=== PATIENT | female | born 1990 | race Caucasian/White ===

== ENCOUNTER 2017-10-28 09:06 | Inpatient (IN) | payer OTHER ==
[~2017-10-28] VITALS: Ht 162.6 cm; Wt 92.0 kg
[2017-10-29] MEDS ORDERED: VITAFOL-OB+DHA1 EACH PO (06:42)
--- NOTE | 2017-10-30 08:33 | PR ---
[facility] [address] [facility] [place], [place] [address] Signed PP Progress Notes Datetime Report Generated by CPN: 10/30/2017 08:33 SUBJECTIVE: [id number] Pain: Within normal limits Nausea/Vomiting: Denies Vital Signs: [id number] Vital Signs: Reviewed; Within Normal Limits EXAM: [id number] Cardiovascular: Not Done Respiratory: Not Done Abdomen/Uterus: Abnormal Lochia: Normal Vulva/Perineum: Not Done Breasts: Not Done CVA Tenderness: Not Done Extremities: Normal Incision: Not Applicable Progress: Normal Exam Comments: Fundus firm, NT @ U. H/H 11.6/35.3, WBC 17.6, plat 243k IMPRESSION/PLAN/PROCEDURES: [id number] Impression: Normal progression Plan: Continue present management Progress Notes: Doing well. Will continue routine care. Signing Physician: Eileen Raya MD Copies: ~ *Electronically Signed* 10/30/17 0833 EILEEN RAYA MD PATIENT NAME: HEATHER GUERRERO PROGRESS NOTE DATE OF : 86 PHYSICIAN: EILEEN RAYA MD RPT #: [id number] REPORT IS CONFIDENTIAL AND NOT TO BE RELEASED WITHOUT AUTHORIZATION
--- NOTE | 2017-10-31 09:58 | PR ---
[facility] [address] [facility] [place] [address] Signed PP Progress Notes Datetime Report Generated by CPN: 10/31/2017 09:58 SUBJECTIVE: [id number] Pain: Within normal limits Nausea/Vomiting: Denies Vital Signs: [id number] Vital Signs: Reviewed; Within Normal Limits EXAM: [id number] Cardiovascular: Not Done Respiratory: Not Done Abdomen/Uterus: Abnormal Lochia: Normal Vulva/Perineum: Not Done Breasts: Not Done CVA Tenderness: Not Done Extremities: Normal Incision: Not Applicable Progress: Normal Exam Comments: Fundus firm, NT @ U. IMPRESSION/PLAN/PROCEDURES: [id number] Impression: Normal progression Plan: Discharge Procedures: None Progress Notes: Doing well. She is ready for D/C. Signing Physician: Eileen Raya MD Copies: ~ *Electronically Signed* 10/31/17 0958 EILEEN RAYA MD PATIENT NAME: HEATHER GUERRERO PROGRESS NOTE DATE OF : 86 PHYSICIAN: EILEEN RAYA MD RPT #: [id number] REPORT IS CONFIDENTIAL AND NOT TO BE RELEASED WITHOUT AUTHORIZATION
== END 2017-10-31 10:50 | disposition home or self-care (01) | DRG 775 ==
LOC: FBC 10-29 05:50
PROVIDERS: ADMIT Obstetrics & Gynecology
PROC: 10E0XZZ Delivery of Products of Conception, External Approach (ICD-10-PCS; principal; 2017-10-29)
PROC: 10907ZC Drainage of Amniotic Fluid, Therapeutic from Products of Conception, Via Natural or Artificial Opening (ICD-10-PCS; 2017-10-29)
PROC: 3E0P7VZ Introduction of Hormone into Female Reproductive, Via Natural or Artificial Opening (ICD-10-PCS; 2017-10-29)
PROC: 00HU33Z Insertion of Infusion Device into Spinal Canal, Percutaneous Approach (ICD-10-PCS; 2017-10-29)
PROC: 3E0R3BZ Introduction of Anesthetic Agent into Spinal Canal, Percutaneous Approach (ICD-10-PCS; 2017-10-29)
DX: O30.043 Twin pregnancy, dichorionic/diamniotic, third trimester (principal); O75.89 Other specified complications of labor and delivery; O32.2XX1 Maternal care for transverse and oblique lie, fetus 1; O32.2XX2 Maternal care for transverse and oblique lie, fetus 2; O69.1XX1 Labor and delivery complicated by cord around neck, with compression, fetus 1; Z88.5 Allergy status to narcotic agent; Z3A.38 38 weeks gestation of pregnancy; Z37.2 Twins, both liveborn
CPT/HCPCS: 36415; 82803; 85027; J2210; J2590; J2795; J3010; J7120

== ENCOUNTER 2018-05-25 09:54 | Emergency (ER) | payer OTHER ==
[~2018-05-25] VITALS: Ht 162.6 cm; Wt 91.6 kg
[~2018-05-25 09:54] MED LIST: VITAFOL-OB+DHA1 EACH PO
[2018-05-25] MEDS ORDERED: PROMETHAZINE HC25 M1 PO (12:34)
[2018-05-25] MEDS ORDERED: AMOXICILLIN500 MG PO (12:34)
== END 2018-05-25 12:43 | disposition home or self-care (01) ==
LOC: ED 09:54
DX: R10.11 Right upper quadrant pain (principal); J02.0 Streptococcal pharyngitis; Z88.5 Allergy status to narcotic agent
CPT/HCPCS: 80053; 81001; 83690; 84703; 85025; 87880; 96361; 96374; 99284-25; J2550; J7030

== ENCOUNTER → 2018-11-26 | Emergency (ER) | payer OTHER ==
[~2018-11-26] VITALS: Ht 162.6 cm; Wt 63.0 kg
[~2018-11-26] MED LIST changes: +AMOXICILLIN500 MG PO; +OMEPRAZOLE20 MG PO; +PROMETHAZINE HC25 M1 PO; +ZOFRAN8 MG PO
== END ==
LOC: ED 02:03
DX: R11.0 Nausea (principal); Z88.5 Allergy status to narcotic agent
CPT/HCPCS: 80053; 81001; 83735; 84703; 85025; 99283